=== PATIENT | male | born 1970 | race Caucasian/White ===

== ENCOUNTER 2016-07-28 17:40 | Emergency (ER) | payer OTHER ==
[~2016-07-28] VITALS: Ht 167.6 cm; Wt 83.9 kg
--- NOTE | ~2016-07-28 | EKG ---
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 07/29/16 0810 1757 1757 Johny Agrawal MD, FACC /EPI
[~2016-07-28 17:40] MED LIST: CLEOCIN HCL300 MG PO; NOHOMEMEDICATIONS; PERCOCET 5-3251 EACH PO
[2016-07-28 18:04] LABS: ABSOLUTE NEUTROPHILS 5.8 thou/uL (1.4-8.2); BASOPHILS 0.4 % (0.0-2.0); HEMATOCRIT 46.7 % (42.0-52.0); HEMOGLOBIN 16.2 gm/dL (14.0-18.0); LYMPHOCYTES 28.7 % (24.0-44.0); MCH 33.1 pg (26.0-34.0); MCHC 34.7 g/dL (28.0-37.0); MCV 95.2 fL (80.0-100.0); MONOCYTES 4.6 % (1.0-8.0); PLATELET COUNT 243 thou/uL (150-400); POLYS 62.3 % (36.0-66.0); RDW 12.9 % (10.5-14.5); WBC 9.4 thou/uL (4.0-11.0)
[2016-07-28 18:06] LABS: MANUAL DIFF NO
[2016-07-28 18:17] LABS: ANION GAP 7 mmol/L (7-16); BUN 8 mg/dL (7-18); CALCIUM 8.9 mg/dL (8.5-10.1); CHLORIDE 105 mmol/L (98-107); CO2 27 mmol/L (21-32); GLUCOSE 89 mg/dL (74-106); POTASSIUM 4.8 mmol/L (3.5-5.1); SODIUM 139 mmol/L (136-145)
[2016-07-28 18:19] LABS: APTT 26.2 Seconds (24.5-32.8); PROTIME 9.5 Seconds (9.3-11.4)
[2016-07-28 18:25] LABS: TROPONIN-I < 0.04 ng/mL (<0.04-0.07)
[2016-07-28] MEDS ORDERED: NORCO 5-325 TA1 EACH PO (19:25)
[2016-07-28 19:48] VITALS: BP 111/89
== END 2016-07-28 20:16 | disposition home or self-care (01) ==
LOC: ER 17:40
PROVIDERS: Emergency Medicine
DX: R07.1 Chest pain on breathing (principal); R09.1 Pleurisy; R91.8 Other nonspecific abnormal finding of lung field; M54.9 Dorsalgia, unspecified; F10.99 Alcohol use, unspecified with unspecified alcohol-induced disorder; Z98.890 Other specified postprocedural states; Z72.0 Tobacco use